=== PATIENT | male | born 1975 | race Caucasian/White ===

== ENCOUNTER 2021-12-12 14:32 | Emergency (ER) | payer MEDICAID ==
[~2021-12-12] VITALS: Ht 170.2 cm; Wt 62.6 kg
[2021-12-12] MEDS ORDERED: ATOR10TA PO (14:55)
[2021-12-12] MEDS ORDERED: OMEG-72 PO (14:55)
[2021-12-12] MEDS ORDERED: PROPOFOL 20 ML IV ONE (15:09)
--- NOTE | 2021-12-12 15:24 | NUR ---
CONSENT OBTAINED FROM PT FOR CLOSED REDUCTION OF LEFT ANKLE. FORM WITNESSED BY ME; PLACED IN PT'S CHART.
[2021-12-12] MEDS: PROPOFOL 200 MG/20 ML VIAL IV ONE (15:25)
--- NOTE | 2021-12-12 15:25 | NUR ---
IV LINE ESTABLISHED CLINICAL NURSING PROFESSOR; 70MG DIPRIVAN ADMINISTERED PER MD ORDER; READ BACK AND VERIFIED. LINE SALINE FLUSHED.
--- NOTE | 2021-12-12 15:29 | NUR ---
30MG DIPRIVAN ADMINISTERED PER MD ORDER; READ BACK AND VERIFIED. LINE SALINE FLUSHED.
--- NOTE | 2021-12-12 15:33 | NUR ---
40MG DIPRIVAN ADMINISTERED PER MD ORDER; READ BACK AND VERIFIED. LINE SALINE FLUSHED.
--- NOTE | 2021-12-12 15:34 | NUR ---
CLOSED REDUCTION PERFORMED BY DR. SALAS AT BEDSIDE. VS MONITORED. PT NOT IN ACUTE DISTRESS.
--- NOTE | 2021-12-12 15:43 | NUR ---
SENIOR CLIMATE ADVISOR AT BEDSIDE FOR XRAY
[2021-12-12] MEDS ORDERED: IBUP-1955 PO (17:09)
[2021-12-12] MEDS ORDERED: HYDR-4303 PO (17:09)
--- NOTE | 2021-12-12 17:32 | NUR ---
TECH AT BEDSIDE FOR DME USE TEACHING
--- NOTE | 2021-12-12 17:32 | NUR ---
IV removed. Catheter intact and site benign. Pressure and 4x4 applied to site. No bleeding noted.
[2021-12-12 17:36] VITALS: BP 123/74
--- NOTE | 2021-12-12 17:36 | NUR ---
Patient discharged to home in stable condition. Written and verbal after care instructions given. Patient verbalizes understanding of instruction.
== END 2021-12-12 17:37 | disposition home or self-care (01) ==
LOC: ER 14:34
DX: S93.05XA Dislocation of left ankle joint, initial encounter (principal); S82.402A Unspecified fracture of shaft of left fibula, initial encounter for closed fracture; E78.00 Pure hypercholesterolemia, unspecified; Z79.899 Other long term (current) drug therapy; W11.XXXA Fall on and from ladder, initial encounter; Y93.89 Activity, other specified; Y92.89 Other specified places as the place of occurrence of the external cause; Y99.8 Other external cause status
CPT/HCPCS: 99285; 72125; 27788; 99152; 73610; 73590; 70450; 73600; J2704; J7030; G0500